=== PATIENT | female | born 1960 | race Caucasian/White ===

== ENCOUNTER 2016-08-24 21:44 | Emergency (ER) | payer OTHER | END 2016-08-24 22:43 | disposition home or self-care (01) | LOC: ER 21:44 | DX: S82.391A Other fracture of lower end of right tibia, initial encounter for closed fracture (principal); S82.831A Other fracture of upper and lower end of right fibula, initial encounter for closed fracture; K21.9 Gastro-esophageal reflux disease without esophagitis; F17.210 Nicotine dependence, cigarettes, uncomplicated; Z79.82 Long term (current) use of aspirin; Z79.899 Other long term (current) drug therapy; W19.XXXA Unspecified fall, initial encounter ==

== ENCOUNTER 2016-09-08 13:36 | Observation (INO) | payer OTHER ==
[~2016-09-08] VITALS: Ht 165.1 cm; Wt 47.7 kg
[2016-09-09] MEDS ORDERED: TEGRETOL XR400 MG PO (15:11)
[2016-09-09] MEDS ORDERED: LAMICTAL200 MG PO (15:12)
[2016-09-09] MEDS ORDERED: PAXIL40 MG PO (15:12)
[2016-09-09] MEDS ORDERED: FOSAMAX70 MG PO (15:12)
[2016-09-09] MEDS ORDERED: NORCO 5-325 TA1 EACH PO (15:12)
[2016-09-09] MEDS ORDERED: CALCIUM600 MG PO (15:13)
== END 2016-09-09 17:30 | disposition home or self-care (01) ==
LOC: ER 13:36 → MED 16:10
PROVIDERS: ADMIT Internal Medicine
DX: T42.1X5A Adverse effect of iminostilbenes, initial encounter (principal); S82.831A Other fracture of upper and lower end of right fibula, initial encounter for closed fracture; S82.891A Other fracture of right lower leg, initial encounter for closed fracture; G40.909 Epilepsy, unspecified, not intractable, without status epilepticus; K21.9 Gastro-esophageal reflux disease without esophagitis; F17.210 Nicotine dependence, cigarettes, uncomplicated; Z79.899 Other long term (current) drug therapy
CPT/HCPCS: 36415; 51701; 80307; 96360; 96361; 96372; 97162-GP; G0378; G0480; J1650

== ENCOUNTER 2016-09-11 11:53 | Emergency (ER) | payer OTHER ==
[~2016-09-11 11:53] MED LIST: CALCIUM600 MG PO; FOSAMAX70 MG PO; LAMICTAL200 MG PO; NORCO 5-325 TA1 EACH PO; PAXIL40 MG PO; TEGRETOL XR400 MG PO
== END 2016-09-11 16:35 | disposition home or self-care (01) ==
LOC: ER 11:53
DX: E87.6 Hypokalemia (principal); G40.909 Epilepsy, unspecified, not intractable, without status epilepticus; K21.9 Gastro-esophageal reflux disease without esophagitis; F17.210 Nicotine dependence, cigarettes, uncomplicated; Z79.899 Other long term (current) drug therapy
CPT/HCPCS: 36415; 51701; 80307; 96360; G0480

== ENCOUNTER 2016-09-28 16:36 | Emergency (ER) | payer OTHER | END 2016-09-28 18:50 | disposition home or self-care (01) | LOC: ER 16:36 | DX: S82.001A Unspecified fracture of right patella, initial encounter for closed fracture (principal); S82.831A Other fracture of upper and lower end of right fibula, initial encounter for closed fracture; F17.210 Nicotine dependence, cigarettes, uncomplicated; Z79.899 Other long term (current) drug therapy; W07.XXXA Fall from chair, initial encounter ==